=== PATIENT | male | born 1990 | race African-American/Black ===

== ENCOUNTER 2017-04-13 15:50 | Emergency (ER) | payer MEDICAID ==
[~2017-04-13] VITALS: Ht 177.8 cm; Wt 59.5 kg
[2017-04-13 15:54] VITALS: BP 112/68
== END 2017-04-13 17:02 | disposition home or self-care (01) ==
LOC: ED 16:45
DX: S74.91XA Injury of unspecified nerve at hip and thigh level, right leg, initial encounter (principal); R20.2 Paresthesia of skin; M79.2 Neuralgia and neuritis, unspecified; X58.XXXA Exposure to other specified factors, initial encounter; Y93.89 Activity, other specified; Y99.8 Other external cause status; Y92.89 Other specified places as the place of occurrence of the external cause
CPT/HCPCS: 99281